=== PATIENT | female | born 2000 | race Two or more races ===

== ENCOUNTER 2025-02-04 15:11 | Emergency (ER) | payer MEDICAID, OTHER ==
[~2025-02-04] VITALS: Ht 154.9 cm; Wt 90.6 kg
[2025-02-04 16:08] LABS: Hematocrit 45.5 % (36.0-46.0); Hemoglobin 15.7 g/dL (12.2-16.2); Mean Corpuscular Hemoglobin 30.8 pg (28.0-32.0); Mean Corpuscular Volume 89.5 fL (80.0-100.0); Nucleated Red Blood Cells % 1.5 %
--- NOTE | 2025-02-04 16:09 | ED.PDOC ---
SOB-HPI HPI Comments HPI: 24 year old female presents to the emergency department for chief complaint of cough onset 4 days ago. Pt reports associated symptom of shortness of breath and presents with productive cough upon assessment. Pt is A&O4, unlabored breathing with O2 saturation at 95%, and able to speak full sentences. Pt denies associated symptoms of fever, nausea, diarrhea, dizziness, dysuria, or body aches. Pt does not report any other associated symptoms at this time. Initial Vitals BP: 138/100 HR: 107 RR:18 O2 Sat: 95 Temp: 98.2 F Past Medical history: denies Past Surgical history: gallbladder surgery Medications: denies Social History: Denies smoking, ETOH, and drug use. Allergies: NKDA HPI: Poor Historian. emanuel berry: cough/sob wheeze b/l, rhonchi. REVIEW OF SYSTEMS: CONSTITUTIONAL: Denies acute: fever, diaphoresis, chills, generalized weakness. HEAD: Denies acute: headache, photophobia Eyes: Denies acute: Double vision, vision loss, eye pain, eye discharge. EARS: Denies acute: tinnitus, hearing loss, ear discharge, ear pain, THROAT: Denies acute: sore throat, swelling, difficulty swallowing , pain with swallowing, change in voice. NECK: Denies acute: neck pain, neck swelling, stiff neck. HEART: Denies acute : chest pain, palpitations, LUNGS: Denies acute: wheezing, hemoptysis ABDOMEN: Denies acute: abdominal pain, Nausea, Vomiting, diarrhea, melena , hematemesis, hematochezia SKIN: Denies acute: rash, redness, lesions, itchiness. EXTREMITIES: Denies acute: calf pain, numbness, tingling, weakness, denies pain in extremity. Denies acute: Low back pain. Neuro: Denies acute: focal neurological deficit, motor or sensory focal neurological deficit, tremors, seizure like activity, confusion, dizziness, change in mental status, loss of bowel or bladder function, cauda equina like symptoms. : Denies acute: dysuria, hematuria, flank pain, increase in urinary frequency. PSYCH: Denies acute: hallucination, suicidal ideation, homicidal ideation. FEMALE: Denies acute: abnormal vaginal bleeding, foul odor, unusual discharge. PHYSICAL EXAM: General: ----no----acute distress, awake and alert. Head: normocephalic, atraumatic. No raccoon's eyes, no vazquez sign. Neck: supple, trachea is midline, no swelling. Throat: Normal phonation. Eyes:, no erythema, no purulent discharge, no proptosis, no icterus. Heart: regular rate, regular rhythm, no significant murmur appreciated. Lungs: no apparent respiratory distress, Able to speak in full sentences. By the wheezing, bilateral rhonchi, no crackles. No stridors Abdomen: non tender to palpation, non distended, soft, no guarding, no rebound, + bowel sounds. Neuro: Awake, Alert, oriented to name, self, situation, follows commands GCS=15. Speech is normal. Skin: no petechia, no purpura, no cyanosis, non-pale, not jaundice. Lower extremities: --no - Pitting edema no deformity, no focal swelling, no calf TTP. Makes eye contact. moves all four extremities. Face: no apparent facial droop. Ambulating in the ED independently. ED COURSE: DISCLAIMER: This medical document was created using an electronic medical record system with voice recognition software and computerized dictation system. Although this document has been carefully reviewed, there might still be some phonetic and typographical errors. Occasional wrong-word or "sound-alike" substitutions may have occurred due to the inherent limitations of voice recognition software. These areas are purely typographical due to imperfections of the software programs and do not reflect any compromise in the patient's medical care. Please read the chart carefully and recognize, using context, where these substitutions have occurred. Chief Complaint: Cough Time Seen by MD: 16:07 Reviewed notes: Nurses Notes, Medications, Allergies Information Source: Patient Mode of Arrival: Ambulatory Severity: Moderate Timing: Days Duration: Since onset Past Medical History PAST MEDICAL HISTORY: Denies Surgical History: Denies all surgeries VP INTEGRATION History: No Pertinent VP INTEGRATION History Was a procedure done? Was a procedure done?: No X-Ray, Labs, Meds, VS Vital Signs Date Time Temp Pulse Resp B/P (MAP) Pulse Ox O2 Delivery O2 Flow Rate FiO2 02/04/25 19:11 98.3 92 16 138/87 (104) 94 98.3 02/04/25 18:09 109 18 95 Room Air* 0 21 02/04/25 17:40 18 96 Room Air* 0 21 02/04/25 17:38 96 Room Air* 0 21 02/04/25 17:12 97.9 100 20 134/102 (113) 95 97.9 02/04/25 17:12 20 100 Room Air* 0 21 02/04/25 15:14 18 95 Room Air* 0 21 02/04/25 15:14 98.2 107 18 138/100 95 98.2 Lab Test 02/04/25 16:07 02/04/25 16:02 02/04/25 15:44 Range/Units Urine Color Yellow Yellow Urine Clarity Turbid H Clear Urine pH 6.5 5.0-9.0 Urine Specific [place] 1.023 1.001-1.035 Urine Protein Trace H Negative Urine Ketones 2+ H Negative Urine Blood Negative Negative /uL Urine Nitrite Negative Negative Urine Bilirubin Negative Negative Urine Urobilinogen Normal Negative mg/dL Urine Leukocyte Esterase 3+ Negative /uL Urine RBC 3 0 - 4 /hpf Urine Microscopic WBC 19 H 0-5 /HPF Urine Squamous Epithelial Cells Few <5 /hpf Urine Bacteria None seen None Seen /hpf Urine Mucus Few None Seen Urine Glucose Normal Normal mg/dL Influenza Type A Antigen Negative Negative Influenza Type B Antigen Negative Negative SARS-CoV-2 Antigen (Rapid) Negative NEGATIVE White Blood Count 10.3 4.4-10.8 10^3/uL Red Blood Count 5.08 4.0-5.20 10^6/uL Hemoglobin 15.7 12.2-16.2 g/dL Hematocrit 45.5 36.0-46.0 % Mean Corpuscular Volume 89.5 80.0-100.0 fL Mean Corpuscular Hemoglobin 30.8 28.0-32.0 pg Mean Corpuscular Hemoglobin Concent 34.4 32.0-36.0 g/dL Red Cell Distribution Width 15.1 H 11.8-14.3 % Platelet Count 321 140-450 10^3/uL Mean Platelet Volume 8.0 6.9-10.8 fL Neutrophils (%) (Auto) 48.6 37.0-80.0 % Lymphocytes (%) (Auto) 32.3 10.0-50.0 % Monocytes (%) (Auto) 6.7 0.0-12.0 % Eosinophils (%) (Auto) 11.5 H 0.0-7.0 % Basophils (%) (Auto) 0.9 0.0-2.0 % Neutrophils # (Auto) 5.0 1.6-8.6 10 ^3/uL Lymphocytes # (Auto) 3.3 0.4-5.4 10 ^3/uL Monocytes # (Auto) 0.7 0-1.3 10 ^3/uL Eosinophils # (Auto) 1.2 H 0-0.8 10 ^3/uL Basophils # (Auto) 0.1 0-0.2 10 ^3/uL Nucleated Red Blood Cells 1.5 % Sodium Level 139 136-145 mmol/L Potassium Level 3.8 3.5-5.1 mmol/L Chloride Level 106 98-107 mmol/L Carbon Dioxide Level 22 20-31 mmol/L Anion Gap 11 5-15 Blood Urea Nitrogen < 5 L 9-23 mg/dL Creatinine 0.70 0.550-1.02 mg/dL Glomerular Filtration Rate Calc 125 >90 mL/min BUN/Creatinine Ratio 7.1 L 10.0-20.0 Serum Glucose 96 74-106 mg/dL Lactic Acid Level 1.3 0.4-2.0 mmol/L Calcium Level 9.4 8.7-10.4 mg/dL Total Bilirubin 0.7 0.2-1.0 mg/dL Aspartate Amino Transferase (AST) 75 H 13-40 U/L Alanine Aminotransferase (ALT) 160 H 7-40 U/L Alkaline Phosphatase 84 46-116 U/L C-Reactive Protein High Sensitivity 0.16 <1.0 mg/dL Total Protein 7.8 5.7-8.2 g/dL Albumin 4.7 3.2-4.8 g/dL Current Medications Medications (Trade) Dose Ordered Sig/[place] Route Start Time Stop Time Status Last Admin Sodium Chloride 500 ml @ 500 mls/hr Q1H ONCE IV 02/04/25 17:30 02/04/25 18:29 [place] 02/04/25 18:06 Methylprednisolone Sodium Succinate (Solu Medrol) 125 mg ONCE ONCE IV 02/04/25 18:15 02/04/25 18:42 [place] 02/04/25 18:43 [facility] [id number] [place] [id number] Ph: [phone] DIAGNOSTIC IMAGING Diagnostic Imaging Report : [id number] Signed PATIENT: EMANUEL BERRY ACCT: [id number] UNIT: [id number] : 2000 LOC: ER ROOM / BED: / AGE / SEX: 24 / F ADM STATUS: REG ER SERVICE 1532 ORDERING PHYSICIAN: TRACY HARDY DO PROCEDURE(s): CXRP - CHEST PORTABLE REASON: COUGH SOB ORDER NUMBER(s): [id number], ACCESSION NUMBER(s): [id number] CHEST RADIOGRAPH INDICATION: COUGH SOB TECHNIQUE: Single frontal view of the chest was obtained COMPARISON: None FINDINGS: Lines and Tubes: None Lungs: No focal consolidation. Pleura: No effusion. No pneumothorax. Cardiomediastinal contours: Unremarkable Bones: No acute osseous abnormality. IMPRESSION: 1. No acute cardiopulmonary disease. ATED BY: ISIDRO MCCORMACK Jr., DO DICTATED DATE/TIME: 02/04/25 163 SIGNED BY: ISIDRO MCCORMACK Jr., SIGNED DATE/TIME: 02/04/251635 CC: Time of 1ST Reevaluation: 16:37 Reevaluation 1ST: Unchanged Patient Education/Counseling: Diagnosis, Treatment Family Education/Counseling: No Family Present Departure 1 Departure Time of Disposition: 17:22 Impression: Primary Impression: Bronchitis Additional Impressions: Wheezing Asymptomatic urinary finding Disposition: 01 HOME / SELF CARE / HOMELESS Condition: Other Additional Instructions: Additional instructions: Please read all instructions provided in this packet carefully. You MUST follow-up with your primary care/family doctor in 1 to 2 days. If you are unable to see your primary care/family doctor, please return to our emergency room for re-assessment and re-evaluation in 1 to 2 days. Return to the emergency room here in our facility or to the nearest ER [facility] if your symptoms change or worsen. CONSULTATIONS: you MUST Follow-up for consultation as soon as possible with: -pulmonology in 1-2 days. Please call for appointment. You MUST call the consultants office yourself to make an appointment. You may need to arrange that through your insurance and/or your primary/family doctor. If you are unable to see the chain sales consultant in 1 to 2 days, you must return to our emergency room (or any other ER of your choice) for re-assessment and re- evaluation. Adequate fluid hydration. Although you have been discharged from the Emergency Department, this does not mean that you have a "clean bill of health". No definitive diagnosis for your symptoms has been made today. It is possible that you are in the process of developing a serious illness. This is why you must return to the ED without fail if any new or worsening symptoms develop. Use your medications as instructed. Below is a copy of your radiological report for follow up: [place] [address] Ph: [phone] DIAGNOSTIC IMAGING Diagnostic Imaging Report : [id number] Signed PATIENT: EMANUEL BERRY ACCT: [id number] UNIT: [id number] : 2000 LOC: ER ROOM / BED: / AGE / SEX: 24 / F ADM STATUS: REG ER SERVICE 1532 ORDERING PHYSICIAN: TRACY HARDY DO PROCEDURE(s): CXRP - CHEST PORTABLE REASON: COUGH SOB ORDER NUMBER(s): [id number], ACCESSION NUMBER(s): [id number] CHEST RADIOGRAPH INDICATION: COUGH SOB TECHNIQUE: Single frontal view of the chest was obtained COMPARISON: None FINDINGS: Lines and Tubes: None Lungs: No focal consolidation. Pleura: No effusion. No pneumothorax. Cardiomediastinal contours: Unremarkable Bones: No acute osseous abnormality. IMPRESSION: 1. No acute cardiopulmonary disease. ATED BY: ISIDRO MCCORMACK Jr., DO DICTATED DATE/TIME: 02/04/25 1636 SIGNED BY: ISIDRO MCCORMACK Jr., SIGNED DATE/TIME: 02/04/25 1636 CC: e-Prescriptions Prednisone (Prednisone) 20 Mg Tab 20 MG PO DAILY for 5 Days, #5 TAB Prov: TRACY HARDY DO 02/04/25 Albuterol Sulfate (Albuterol Sulfate Hfa) 108 Mcg/Act Aer 108 MCG IN Q4HPRN PRN for 3 Days, #1 AER Prov: TRACY HARDY DO 02/04/25 Azithromycin (Zithromax Tri-Lexa) 500 Mg Tab 500 MG PO DAILY for 6 Days, #6 TAB Prov: HAYLEYTRACY DO 02/04/25 Discharged With: Self Critical Care Note Critical Care Time?: No Heart Score Heart Score: Heart Score Response (Comments) Value History N/A 0 EKG N/A 0 Age N/A 0 Risk Factors N/A 0 Troponin N/A 0 Total 0 I personally scribed for TRACY HARDY DO ([email or web address]) on 02/04/25 at 16:09. Electronically submitted by Cornelia Locke ([email or web address]). I personally scribed for TRACY HARDY DO ([email or web address]) on 02/04/25 at 16:13. Electronically submitted by Cornelia Locke ([email or web address]). I personally scribed for TRACY HARDY DO ([email or web address]) on 02/04/25 at 16:15. Electronically submitted by Cornelia Locke ([email or web address]). I personally scribed for TRACY HARDY DO ([email or web address]) on 02/04/25 at 16:52. Electronically submitted by Cornelia Locke ([email or web address]). I personally scribed for TRACY HARDY DO ([email or web address]) on 02/04/25 at 16:58. Electronically submitted by Cornelia Locke ([email or web address]). TRACY HARDY DO Feb 04, 2025 16:09
[2025-02-04 16:31] LABS: Alanine Aminotransferase 160 U/L (7-40); Albumin 4.7 g/dL (3.2-4.8); Alkaline Phosphatase 84 U/L (46-116); Anion Gap 11 (5-15); BUN/Creatinine Ratio 7.1 (10.0-20.0); Bilirubin, Total 0.7 mg/dL (0.2-1.0); Blood Urea Nitrogen < 5 mg/dL (9-23); Calcium 9.4 mg/dL (8.7-10.4); Carbon Dioxide 22 mmol/L (20-31); Chloride 106 mmol/L (98-107); Glucose 96 mg/dL (74-106); Potassium 3.8 mmol/L (3.5-5.1); Sodium 139 mmol/L (136-145); Total Protein 7.8 g/dL (5.7-8.2)
--- NOTE | 2025-02-04 16:38 | DVH ---
CHEST RADIOGRAPH INDICATION: COUGH SOB TECHNIQUE: Single frontal view of the chest was obtained COMPARISON: None FINDINGS: Lines and Tubes: None Lungs: No focal consolidation. Pleura: No effusion. No pneumothorax. Cardiomediastinal contours: Unremarkable Bones: No acute osseous abnormality. IMPRESSION: 1. No acute cardiopulmonary disease.
[2025-02-04 16:40] LABS: COVID19 ANTIGEN SOFIA FIA NEGATIVE (NEGATIVE)
[2025-02-04] MEDS ORDERED: AZITTAB2 PO (17:23)
[2025-02-04] MEDS ORDERED: PRED20TA2 PO (17:23)
[2025-02-04] MEDS ORDERED: ALBU108A5 IN (17:23)
[2025-02-04] MEDS: methylPREDNISolone SOD SUCC 125 MG/2 ML VL IM ONE (17:30)
[2025-02-04] MEDS: ALBUTEROL SULF 2.5 MG/0.5ML(0.5%) NEB SOLN ONE (17:36)
[2025-02-04] MEDS: IPRATROPIUM BROM 0.5 MG/2.5ML INH SOL ONE (17:36)
[2025-02-04 18:04] LABS: Urine Protein, UAD TRACE (Negative)
[2025-02-04] MEDS: SODIUM CHLORIDE 0.9% 500 ML IV ONE (18:06)
[2025-02-04 18:09] VITALS: PULSE 109; RESP 18; O2SAT 95
[2025-02-04] MEDS: ALBUTEROL SULF 2.5 MG/0.5ML(0.5%) NEB SOLN NEB ONE (18:35)
[2025-02-04] MEDS: IPRATROPIUM BROM 0.5 MG/2.5ML INH SOL NEB ONE (18:35)
[2025-02-04] MEDS: methylPREDNISolone SOD SUCC 125 MG/2 ML VL IV ONE (18:43)
[2025-02-04 19:46] VITALS: BP 134/80; PULSE 88; RESP 18; TEMP 98.5; O2SAT 98
== END 2025-02-04 19:51 | disposition home or self-care (01) ==
LOC: ER 15:11
DX: J40 Bronchitis, not specified as acute or chronic (principal); R06.2 Wheezing; R82.90 Unspecified abnormal findings in urine; Z20.822 Contact with and (suspected) exposure to COVID-19
CPT/HCPCS: 36415; 71045; 80053; 81001; 83605; 85025; 86141; 87426; 87804; 94640; 96374; 99285; J2919; J7040